=== PATIENT | female | born 1940 | race Caucasian/White ===

== ENCOUNTER 2023-08-23 08:16 | Emergency (ER) | payer OTHER, MEDICARE, SELFPAY ==
[2023-08-23 08:24] VITALS: BP 170/78; PULSE 69; RESP 16; TEMP 36.9; O2SAT 98; BMI 33.5
--- NOTE | 2023-08-23 08:42 | ED.GENADULT ---
HPI - General Adult General Time Seen by Provider: 08:42 Date Seen: 08/23/23 Chief complaint: Extremity Pain/Injury, Upper Stated complaint: right arm/shoulder pain Time Seen by Provider: 08/23/23 08:41 Source: patient and RN notes reviewed Mode of arrival: ambulatory Limitations: no limitations History of Present Illness HPI narrative: Kaye is an 83-year-old female coming in with right shoulder pain sudden bothering her for a while now. It is in her right shoulder area. She denies any trauma. She is not aware of any aggravating injury. She has had no fevers, no night sweats, no history of cancer. She sometimes feels the pain go up into the back of the shoulder. She is having difficulty with range of motion in the shoulder area. She states she is coming in because she is concerned about losing range of motion of her shoulder. She did not attempt to contact the clinic. She is a side sleeper, this is waking her up, she will maybe sleep for 2 hours and then wake up. She has not tried any Tylenol, states that does not work for her. She certainly has not tried any scheduled Tylenol to see if it helps. She states she has been taking Advil with some relief but notes that she has been told not to take Advil because of her blood pressure. She denies any neck pain, no numbness tingling in this extremity. She does endorse a little foot and ankle swelling but has had no shortness of breath, absolutely no chest pain, no cardiac symptoms. She is not worried at all that this shoulder pain could be anything but musculoskeletal. Related Data Home Medications Medication Instructions Recorded Confirmed amlodipine 5 mg tablet 5 mg PO DAILY 08/23/23 08/23/23 clobetasol 0.05 % topical ointment topical DAILY 08/23/23 08/23/23 Allergies Allergy/AdvReac Type Severity Reaction Status Date / Time sulfas Allergy Intermediate Unknown Uncoded 08/23/23 08:23 Review of Systems Status of ROS: Reports: 6 or more systems reviewed and unremarkable except as noted in History and below [facility] Social History Non-prescribed substance use: denies use Exam Const: Vital Signs, click to edit/add: Vital Signs - 24 hr 08/23/23 08:24 Temperature 98.5 F Pulse Rate [Pulse Oximeter] 69 Respiratory Rate 16 Blood Pressure [[facility] Upper Arm] 170/78 H Pulse Oximetry 98 Kaye is a very pleasant 83-year-old female seen in exam room 4. Her is present. She is alert, interactive, no apparent distress. Sclera clear, conjugate gaze, equal pupils. Symmetrical facial function, speech normal and able to speak in complete sentences. Neck is supple, no cervical adenopathy, no neck masses. No midline tenderness over her cervical spine or into her thoracic spine. Lungs are clear, good air entry, no wheezing or crackles. CV regular rate and rhythm, no murmur, normal S1 and S2. Symmetric hand babbitter strength, good equal sensation of both hands, extremities (upper) have normal symmetrical warmth. Her pain isolates around the right shoulder, I can forward flex and abduct but she does start to have pain above 90? on abduction and some with forward flexion although she is able to do it. Clavicle itself is nontender, distally when you get to the end of the clavicle by the AC joint and closer to the glenohumeral joint, has some generalized tenderness in this area without any palpable mass or swelling. I feel no crepitus on just slight range of motion of the glenohumeral joint. She has increased pain with supraspinatus testing, cannot readily reach behind her back with her right arm and is very able to do so with her left arm. Reviewed with her that she seems to have limitation in her right shoulder and I suspect it is a rotator cuff issue, whether it is tendinitis versus bursitis or atraumatic issues with the rotator cuff. She has no pretibial pitting edema of her lower extremities, no calf tenderness. Her ankles bilaterally just seemed to have some soft tissue thickening without pitting edema, skin looks normal and warm. Documenting provider has reviewed patient's vital signs: yes Course Course ED Course: We will obtain a right shoulder x-ray. It is likely that she will need orthopedic evaluation and further treatment. Otherwise, there is anything on her x-ray that we would not expect like bony pathology outside of arthritis, will guide therapy accordingly. Reevaluation(s) Time of Reevaluation #1: 10:04 Reevaluation #1: Have reviewed with patient and her that the radiologist is seeing AC joint arthritis, showed her exactly where that is, she definitely does have pain with palpation of this joint. We did review that sometimes is there can be injected. She would need to see orthopedics. She states that this is a problem because they are leaving for [place] in 2-3 weeks. I did review with her that coming to the ER does not necessitate expedited care but we can see what we can do for follow-up appointment for her. In the meantime, would recommend that she try Tylenol 1000 mg 3 times a day and do this scheduled for at least 3-5 days before she states it is not working. We did review that side sleeping can increase the pressure on this joint and make it more painful. Vital Signs Vital signs: Initial Vital Signs Temperature 98.5 F 08/23/23 08:24 Temperature Source Temporal Artery Scan 08/23/23 08:24 Pulse Rate 69 08/23/23 08:24 Respiratory Rate 16 08/23/23 08:24 Blood Pressure 170/78 H 08/23/23 08:24 Blood Pressure Mean 108 H 08/23/23 08:24 Pulse Oximetry 98 08/23/23 08:24 Vital Signs Temperature 98.5 F 08/23/23 08:24 Pulse Rate 69 08/23/23 08:24 Respiratory Rate 16 08/23/23 08:24 Blood Pressure 170/78 H 08/23/23 08:24 Pulse Oximetry 98 08/23/23 08:24 Temperature 98.5 F 08/23/23 08:24 Pulse Rate 69 08/23/23 08:24 Respiratory Rate 16 08/23/23 08:24 Blood Pressure 170/78 H 08/23/23 08:24 Pulse Oximetry 98 08/23/23 08:24 Medical Decision Making Imaging Data XR right shoulder: Attestation: I have reviewed the pertinent imaging results. My impression: I do not appreciate any significant concerning changes on this right shoulder film. Certainly no dislocation. Glenohumeral joint looks relatively normal on my preliminary review. Radiologist's impression: Patient: KAYE FRANKLIN Facility:?[facility] Patient ID:?[id number] Site Patient ID:?[id number]. Site :?[id number] Study:?XRay Shoulder Right 3 VIEWS-08/23/2023 9:49:49 AM Ordering Physician:Ramon Chiu Final Report: Indication: Right shoulder pain. Technique: Right shoulder 3 views. Comparison: None. Findings: Joint space narrowing and spurring at the acromioclavicular joint. No fracture. Mild degenerative changes at the greater tuberosity. No fracture. Impression: Moderate acromioclavicular degenerative joint disease. Dictated by Eddie Rangel MD @ 08/23/2023 9:57:05 AM (Electronic Signature) Critical Care Time Critical Care Time Critical Care Time: No Discharge Plan Discharge Clinical Impression: Arthritis of right acromioclavicular joint Patient Disposition: Home, Self-Care Condition: Stable Instructions: Osteoarthritis (ED) Additional Instructions: Do recommend taking Tylenol 1000 mg 3 times a day scheduled. If it is not helping with any relief after you have done it scheduled for 5 days, do agree that you can stop use. Follow up appointment is scheduled at the [facility] on 08/24 with a 9:40am appointment time. Please arrive at 9:30am to complete paperwork. If you have any questions or need to reschedule, please call [phone]. [facility] [address] [place] [address] Activity Level: Activity as Tolerated Prescriptions: No Action amlodipine 5 mg tablet 5 mg PO DAILY clobetasol 0.05 % ointment topical DAILY Follow Up/Referrals: Sharon Wren DO [Primary Care Provider] - Stand Alone Forms: [facility] Info Instructions
--- NOTE | 2023-08-23 08:48 | CRLHL7_ITS ---
For Patients: As a result of the Cures Act, medical imaging exams and procedure reports are released immediately into your electronic medical record. You may view this report before your referring provider. If you have questions, please contact your health care provider. Indication: Right shoulder pain. Technique: Right shoulder 3 views. Comparison: None. Findings: Joint space narrowing and spurring at the acromioclavicular joint. No fracture. Mild degenerative changes at the greater tuberosity. No fracture. Impression: Moderate acromioclavicular degenerative joint disease. Dictated by Eddie Rangel MD @ 08/23/2023 9:57:05 AM (Electronically Signed)
== END 2023-08-23 10:27 | disposition home or self-care (01) ==
PROVIDERS: Emergency Provider Family Medicine; PCP Family Medicine
DX: M19.011 Primary osteoarthritis, right shoulder (principal)
CPT/HCPCS: 73030; 99283

== ENCOUNTER 2025-04-21 18:28 | Emergency (ER) | payer OTHER, MEDICARE, SELFPAY ==
--- OUTSIDE RECORDS SUMMARY | 2007-04-15 04:33 | XMS_ITS | Continuity of Care Document ---
Author Organization [facility] Address [address] [address] [place] [address] Phone Care Team Providers Care Grain Drier Operator Name Role Phone Buzz Westbrook MD Unavailable Unavailable Allergies, Adverse Reactions, Alerts Substance Reaction Status Criticality Sulfa (Sulfonamide Antibiotics) headaches Active No Information ISOMETHEPTENE MUCATE chills, nausea Active No In formation acetaminophen chills, nausea Active No Informati on dichloralphenazone chills, nausea Active No Info rmation Medications Medication Instructions Dosage Effective Dates (start - stop) Status Comments FIORICET (unknown strength) as needed Not Available - Active IBUPROFEN (unknown strength) as needed Not Available - Active ANTIOXIDANT (unknown strength) every day Not Available - Active Procedures Procedure Date Colonoscopy Flex; Dx (sep Pro) 07 Advance Directives Directive Yes / No Effective Date File Name No Information Encounters Encounter Description Practice Location Reason(s) For Visit Diagnoses Date Provider Providers Copied on Encounter [facility], [address] [address], [place], [place], [id number], [place] tel:[phone] [facility] Colon Cancer Screening Pietro Gerber. [address] [facility], [place], [place], [id number], [place]. tel:[phone] Referring Provider: Caroline Shafer [place], [address] [place], [address]. tel:[phone] Family History Family Member Type Diagnosis Age At Onset No Information Payers Payer name Insurance type Covered constitution party ID Authoryobany castellanos(s) [id number] Social History Type Description Quantity Date Captured Comments Sex Female Smoking Status No Information Chief Complaint And Reason For Visit No Information Reason For Referral Reason For Referral No Information History Of Present Illness Encounter Date Complaint History Of Prese nt Illness No Information Functional Status Date Functional Assessmen t No Information Instructions Date Instruction Additional Infor mation No Information Assessments Type Assessment Date No Information Patient Care Teams Name Effective Dates (start - stop) Status Members No Information
--- OUTSIDE RECORDS SUMMARY | 2025-04-21 18:30 | XMS_ITS ---
Author Name Interface, [id number] lity Address [address] [place] [address] [address] [place] [address] Organization [facility] Address [address] [facility] [address] [place] [address] Care Team Providers Care Sander And Buffer Name Role Phone Nahomy Garcia Unavailable Unavailable Allergies and Adverse Reactions Medication/Group Name Reaction Severity Date Sulfa (Sulfonamide Antibiotics) Hives 04/08/2021 Plan Date Type Value 04/08/2021 APPOINTMENT RC - 60 6 MONTH RECHECK - 60 6 MONTH RECHECK Reason for Visit RC - 60 6 MONTH RECHECK - 60 6 MONTH RECHECK Encounters Date Name 04/08/2021 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) Immunizations Date Name Route Dose Instructions Refusal Reason Stat us Covid-19 vaccine (Moderna) Completed Covid-19 vaccine (Moderna) Completed Medications Date Name Route Dose Frequency Instructions Start Date End Date Status Calcium Carbonate Oral active Turmeric (Curcumin) Oral active Cyanocobalamin Oral active Aspirin Oral acti ve Clobetasol Topical Cream 0.05 % active Cetirizine Oral a ctive Problems Diagnosis Status Date of Diagnosi s Mixed hyperlipidemia Active HTN Active 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
--- OUTSIDE RECORDS SUMMARY | 2025-04-21 18:30 | XMS_ITS | CCD ---
Author Name Interface, [id number] lity Address [address] [place] [address] Oncology Address [address] [place] [address] Reason for Visit Encounters Medications Problems Social History
--- OUTSIDE RECORDS SUMMARY | 2025-04-21 18:30 | XMS_ITS ---
Author Name Interface, [id number] lity Address [address] [place] [address] [address] [place] [address] [facility] Address [address] [facility] [address] [place] [address] Care Team Providers Care Diesel Tractor Operator Name Role Phone Gage Fenton Unavailable Unavailable Allergies and Adverse Reactions Medication/Group Name Reaction Severity Date Sulfa (Sulfonamide Antibiotics) Hives 04/08/2021 Plan Date Type Value 04/08/2021 APPOINTMENT RC - 60 6 MONTH RECHECK - 60 6 MONTH RECHECK 01/31/2021 APPOINTMENT RC - 60 6MO RC - 60 6MO RC 09/27/2020 APPOINTMENT [facility] - Carmelo Guadarrama - LICHEN SCLORSIS 09/27/2020 APPOINTMENT [facility] - Carmelo Guadarrama - LICHEN SCLORSIS Reason for Visit RC - 60 6 MONTH RECHECK - 60 6 MONTH RECHECK Encounters Date Name 09/27/2020 Lichen sclerosus et atrophicus of the vulva [...] Psoriasis Active Vital Signs Date Type Value 09/27/2020 Intravascular Systolic 142 09/27/2020 Intravascular Diastolic 80 09/27/2020 Pain Scale 0.00 09/27/2020 Body Temperature 97.30 09/27/2020 BSA 1.97 09/27/2020 BMI 33.90 09/27/2020 Height 64.50 09/27/2020 Weight 200.60 09/27/2020 Oxygen Saturation 97.00 09/27/2020 Respiratory Rate 16.00 09/27/2020 Heart Beat 73.00 04/08/2021 Heart Beat 62.00 04/08/2021 Body Temperature 97.10 04/08/2021 Intravascular Systolic 136 04/08/2021 Intravascular Diastolic 76 04/08/2021 BSA 1.97 04/08/2021 Height 64.50 04/08/2021 Weight 199.60 04/08/2021 Pain Scale 0.00 04/08/2021 Oxygen Saturation 98.00 04/08/2021 Respiratory Rate 16.00 04/08/2021 BMI 33.73
--- OUTSIDE RECORDS SUMMARY | 2025-04-21 18:30 | XMS_ITS | Clinical Summary ---
Author Organization [facility] Address [address] [place] [address] Care Team Providers Care Compensation Business Partner Name Role Phone Sharon Wren DO Primary Care Provider [phone] Allergies Active Allergy Reactions Criticality Noted Date Comments Sulfa (Sulfonamide Antibiotics) Hives 11/2016 Possible rash/sick Medications red yeast rice 600 mg tab Take by mouth. 0 06/05/20 19 Active calcium carbonate (CALTRATE) 600 mg calcium (1,500 mg) tablet Once daily 180 tablet 3 06/05/20 19 Active cyanocobalamin (VITAMIN B-12) 1,000 mcg tablet Take 1 tablet by mouth once daily. 90 tablet 3 06/05/20 19 Active VITAMINS A,C,Z-ICTO-BIZBFK (Ocuvite PreserVision) 2,148 mcg-113 mg-45 mg-17.4mg tablet Take 1 Tablet by mouth two times daily. 0 04/27/20 23 Active cetirizine (ZYRTEC) 10 mg tablet Take 1 Tablet (10 mg) by mouth once daily. 0 04/27/20 23 Active clobetasol 0.05% (TEMOVATE 0.05% OINTMENT) 0.05 % ointmentIndication s:Lichen sclerosus APPLY 1/2 FINGERTIP UNIT TOPICALLY NIGHTLY (FINGERTIP UNIT=MEASURED FROM DISTAL SKIN CREASE OF INDEX FINGER TO THE TIP) 30 g 3 01/24/20 24 Active famotidine (PEPCID) 40 mg tabletIndications: Nausea Take 1 Tablet (40 mg) by mouth once daily. 30 Tablet 05/29/20 24 Active Additional Information Patient not taking.Reported on 08/28/2024 amLODIPine (NORVASC) 5 mg tabletIndications: HTN (hypertension) Take 1 Tablet (5 mg) by mouth once daily. 90 Tablet 3 05/29/20 24 Active rosuvastatin (CRESTOR) 5 mg tabletIndications: Hyperlipidemia, unspecified hyperlipidemia type Take 1 Tablet (5 mg) by mouth at bedtime. 90 Tablet 3 06/22/20 24 Active Active Problems Problem Noted Date Diagnosed Date Colon polyp 03/12/2022 Overview (03/12/2022): Colonoscopy 02/2022 2-TA, repeat in 7 years depending upon overall health Osteopenia of spine 10/06/2020 Overview (10/06/2020): 08/2020 osteopenia, repeat dexa 3-5 years Lichen sclerosus et atrophicus of the vulva 08/22 Advanced care planning/counseling discussion Overview (06/06/2019): Patient reports that she does have advanced care plan completed, desires to be DNR, DNI status, will supply us with a copy of the ACP for scanning. Hyperlipidemia, unspecified 03/24/2017 Actinic keratosis of left cheek 03/24/2017 Psoriasis 03/24/2017 Neck pain, chronic 03/24/2017 Essential hypertension Immunizations Immunization Administration Dates Next Due COVID-19 vaccine (Moderna 100mcg/0.5mL) PF, MDV 02/14/2021,01/17/2021 Influenza Virus, Unspecified 10/13/2016, 09/25/2013,09/17/2011,2004,09/24/1995 Influenza, High-dose Inactivated 08/22/2019,08/22 Influenza, Inactivated AIIV4 (Age 65+ Years) Preserv Free 09/11/2021,09/03/2020 Pneumococcal Poly,23-Valent (Pneumovax) 05/20/2017 Pneumococcal conj 13-Valent (Prevnar 13) 03/22/2017,05/01/2016 Pneumococcal, Unspecified 09/17/1995 Td (Age >=7 Years) 07/24/2001,03/16/1991 Tdap 09/17/2011 Zoster (Shingrix-RZV, recombinant) 08/22/2019, Zoster (Zostavax-ZVL, live) 12/10/2010 Family History Medical History Relation Name Comments Diabetes type II Brother Brain cancer Father Diabetes type II Mother Heart Disease Mother Congenital dis ease, from [place] Psoriasis Mother Diabetes type II Sister Diabetes type II Son Relation Name Status Comments Brother Alive Father (Age 77) Brain tumo r Mother (Age 67) [place] Sister Alive Son Alive Social History Tobacco Use Types Packs/Day Years Used Date Smoking Tobacco: Never Smokeless Tobacco: Never Tobacco Cessation:Counseling Given: Yes Alcohol Use Standard Drinks/Week Comments Yes 2 (1 standard drink = 0.6 oz pur e alcohol) PHQ-2 Answer Date Recorded PHQ-2 TOTAL SCORE 0 05/29/2024 Social Connections Answer Date Recorded Do you often feel lonely or isolated from those around you? 0 05/29/2024 Alcohol Use Answer Date Recorded How often do you have a drink containing alcohol ? 2 04/27/2023 How many drinks containing a lcohol do you have on a typical day when you are drinking? 0 04/27/2023 How often do you have five or more drinks on one occasion? 0 04/27/2023 Financial Resource Strain Answer Date R ecorded Difficulty of Paying Living Expenses 3 05/29/2024 Difficulty of Paying Living Expenses Not on file 05/29/2024 Food Insecurity Answer Date Recorded Do you worry your food will run out before you are able to buy more? 1 05/29/2024 Transportation Needs Answer Date Record ed Does lack of transportation keep you from medica l appointments? 1 05/29/2024 Does lack of transportation keep you from work, meetings or getting things that you need? 1 05/29/2024 Housing Stability Answer Date Recorded What is your housing situation today? 1 05/29/2024 Utilities Answer Date Recorded Do you have trouble paying f or utilities (for example, heat, electricity, water, phone)? 1 05/29/2024 Comments No Sex and Gender Information Value Date Recorded Sex Assigned at Not on file Legal Sex Female 11:59 AM CDT Gender Identity Not on file Sexual Orientation Not on file Obstetrics History Last Filed Vital Signs Vital Sign Reading Time Taken Comments Blood Pressure 133/74 06/22/2024 9:04 AM CDT Pulse 65 06/22/2024 9:04 AM CDT Temperature 37 C (98.6 F) 09/11/2021 12:42 PM CDT Respiratory Rate - - Oxygen Saturation 97% 06/22/2024 9:04 AM CDT Inhaled Oxygen Concentration - - Weight 78.9 kg (174 lb) 05/29/2024 3:36 PM CDT Height 161.9 cm (5' 3.75) 05/29/2024 3:36 PM CD T Body Mass Index 30.1 05/29/2024 3:36 PM CDT Plan of Treatment Health Maintenance Due Date Last Done Comments RSV vaccine for adults or (1 - 1-dose 75+ series) 2017 Tetanus booster 09/17/2021 09/17/2011, 12/2000, 03/16/1991 COVID-19 vaccine series ( season) 2024 02/14/2021, 01/17/2021 BMI (ht and wt on same day) for age 18+ 05/29/2025 05/29/2024, 04/27/2023, 09/11/2021, Additional history exists Medicare Wellness for age 65+ 05/30/2025 05/29/2024, 04/27/2023, 09/11/2021, Additional history exists Depression screening for age 12+ 06/01/2025 06/01/2024, 05/29/2024, 04/27/2023, Additional history exists Influenza Vaccine (Season Ended) 2025 09/11/2021, 09/03/2020, 08/22/2019, Additional history exists Tdap Completed 09/17/2011 Pneumococcal series for age 50+ Completed 05/20/2017, 03/22/2017, 05/01/2016, Additional history exists Zoster (shingles) series for age 50+ Completed 08/22/2019, 06/05/2019, 12/10/2010 DEXA/DXA scan for age 65+ Completed 09/18/2020 Hepatitis B series for 19+ Aged Out N o longer eligible based on patient's age to complete this topic Procedures Procedure Name Priority Date/Time Associated Diagnosis Comments XR DXA BONE DENSITY 2 SITES AXIAL Routine 09/18/2020 10:37 AM CDT Unspecified menopausal and perimenopausal disorder Osteoporosis screening from Last 3 Months or Most Recently Relevant to Health Maintenance Results * (ABNORMAL) XR DXA BONE DENSITY 2 SITES AXIAL (09/18/2020 10:37 AM CDT) Anatomical Region Laterality Modality Spine, HIPS, HIPL, HIPR Other Narrative 09/29/2020 3:57 PM 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 Sharon Wren DO DEXA Final Resu lt from Last 3 Months or Most Recently Relevant to Health Maintenance Insurance [facility] MEDICARE PART A HB ONLY Advance Directives Documents on File Type Date Recorded Patient Senior Asset Manager Expl anation Healthcare Directive 09/06/2017 3:50 PM IMELDA RIVERA, 09/18/2005 Care Teams Compensation Business Partner Relationship Specialty Start Date End Date Sharon Wren DO [address] [place] [address] PCP - General Family Practice 09/11/21
[2025-04-21 18:31] VITALS: BP 171/74; PULSE 75; RESP 16; TEMP 37; O2SAT 96
--- NOTE | 2025-04-21 18:35 | CRLHL7_ITS ---
For Patients: As a result of the Cures Act, medical imaging exams and procedure reports are released immediately into your electronic medical record. You may view this report before your referring provider. If you have questions, please contact your health care provider. INDICATION: Trauma. Pain. FINDINGS: Three images of the left 4th digit are submitted without comparison. The visualized osseous structures of the left 4th digit appear intact and demonstrate appropriate articulation. No suspicious radiodense foreign bodies or free air seen within the soft tissues of the left 4th digit. IMPRESSION: No convincing radiographic evidence of acute osseous injury of the left 4th digit. Dictated by Benny Marcus MD @ 04/21/2025 6:54:43 PM (Electronically Signed)
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
--- OUTSIDE RECORDS SUMMARY | 2025-04-21 19:15 | XMS_ITS ---
Author Name Interface, [id number] lity Address [address] [place] [address] [address] [place] [address] [facility] Address [address] [facility] [address] [place] [address] Care Team Providers Care Sign Poster Name Role Phone Gage Fenton Unavailable Unavailable Allergies and Adverse Reactions Medication/Group Name Reaction Severity Date Sulfa (Sulfonamide Antibiotics) Hives 04/08/2021 Plan Date Type Value 04/08/2021 APPOINTMENT RC - 60 6 MONTH RECHECK - 60 6 MONTH RECHECK 01/31/2021 APPOINTMENT RC - 60 6MO RC - 60 6MO RC 09/27/2020 APPOINTMENT TRANSMISSION ENGINEER - Carmelo Guadarrama - LICHEN SCLORSIS 09/27/2020 APPOINTMENT TRANSMISSION ENGINEER - Carmelo Guadarrama - LICHEN SCLORSIS Reason [...]
--- OUTSIDE RECORDS SUMMARY | 2025-04-21 19:15 | XMS_ITS | CCD ---
Author Name Interface, [id number] lity Address [address] [place] [address] Oncology Address [address] [place] [address] Reason for Visit Encounters Medications Problems Social History
--- OUTSIDE RECORDS SUMMARY | 2025-04-21 19:15 | XMS_ITS ---
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
--- OUTSIDE RECORDS SUMMARY | 2025-04-21 19:15 | XMS_ITS ---
Author Name Interface, [id number] lity Address [address] [place] [address] [address] [place] [address] Organization [facility] Address [address] [facility] [address] [place] [address] Care Team Providers Care Color Dipper Name Role Phone Nahomy Garcia Unavailable Unavailable [...]
--- OUTSIDE RECORDS SUMMARY | 2025-04-21 19:15 | XMS_ITS ---
Author Name Interface, [id number] lity Address [address] [place] [address] [address] [place] [address] Organization [facility] Address [address] [facility] [address] [place] [address] Care Team Providers Care Monorail Operator Name Role Phone Nahomy Garcia Unavailable Unavailable [...]
--- OUTSIDE RECORDS SUMMARY | 2025-04-21 19:15 | XMS_ITS | CCD ---
Author Name Interface, [id number] lity Address [address] [place] [address] Oncology Address [address] [place] [address] Reason for Visit Encounters Medications Problems Social History
== END 2025-04-21 19:55 | disposition home or self-care (01) ==
PROVIDERS: Emergency Provider Emergency Medicine Emergency Medical Services; PCP Family Medicine
DX: S60.042A Contusion of left ring finger without damage to nail, initial encounter (principal); V43.62XA Car passenger injured in collision with other type car in traffic accident, initial encounter
CPT/HCPCS: 73140; 99283; 99284